=== PATIENT | female | born 1980 | race Caucasian/White ===

== ENCOUNTER 2017-01-09 23:35 | Observation (INO) | payer MEDICAID, OTHER ==
[2017-01-10] MEDS ORDERED: Sodium Chloride 0.9% 1,000 ML IV STA (00:16)
--- NOTE | 2017-01-10 00:16 | ED PDOC ---
Arrival/HPI - General Chief Complaint: Breast Problem Time Seen by Provider: 01/09/17 23:38 Historian: Patient - History of Present Illness Narrative History of Present Illness (Text): 01/10/17 00:13 Ernestina Zamudio is a 36 year old female, with no significant past medical history , who presents to the Emergency department complaining of left sided chest pain radiating to neck since yesterday. Patient reports associated nausea and generalized malaise/fatigue. Patient denies any fever, chills, shortness of breath, nausea, vomiting, diarrhea, urinary symptoms, back pain, headache, dizziness, or any other complaints. Time/Duration: Other (today) Symptom Onset: Gradual Symptom Course: Unchanged Activities at Onset: Rest, Light Context: Home Past Medical History - Provider Review Nursing Documentation Reviewed: Yes - Infectious Disease Hx of Infectious Diseases: None - Reproductive Menopause: No - Psychiatric Hx Psychophysiologic Disorder: No Hx Substance Use: No - Surgical History Hx Section: Yes - Anesthesia Hx Anesthesia: No Family/Social History - Physician Review Nursing Documentation Reviewed: Yes Family/Social History: No Known Family HX Smoking Status: Never Smoked Hx Alcohol Use: No Hx Substance Use: No Allergies/Home Meds Allergies/Adverse Reactions: Allergies lactose Allergy (Verified 09/22/15 08:55) VOMITING Review of Systems - Physician Review All systems were reviewed & negative as marked: Yes - Review of Systems Constitutional: Fatigue, Other (+generalized malaise) Eyes: Normal ENT: Normal Respiratory: Normal. absent: SOB, Cough Cardiovascular: Chest Pain Gastrointestinal: Normal. absent: Abdominal Pain, Diarrhea, Nausea, Vomiting Genitourinary Female: Normal. absent: Dysuria, Frequency, Hematuria, Urine Output Changes Musculoskeletal: Neck Pain. absent: Back Pain Skin: Normal. absent: Rash Neurological: Normal. absent: Headache, Dizziness Endocrine: Normal Hemo/Lymphatic: Normal Psychiatric: Normal Physical Exam Vital Signs Reviewed: Yes Vital Signs Temp Pulse Resp BP Pulse Ox 01/10/17 03:00 63 18 118/71 99 01/10/17 01:36 73 12 118/71 100 01/09/17 23:50 97.6 F 75 20 120/71 100 Temperature: Afebrile Blood Pressure: Normal Pulse: Regular Respiratory Rate: Normal Appearance: Positive for: Well-Appearing, Non-Toxic, Comfortable Pain Distress: None Mental Status: Positive for: Alert and Oriented X 3 - Systems Exam Head: Present: Atraumatic, Normocephalic Pupils: Present: PERRL Extroacular Muscles: Present: EOMI Conjunctiva: Present: Normal Mouth: Present: Moist Mucous Membranes Neck: Present: Normal Range of Motion Respiratory/Chest: Present: Clear to Auscultation, Good Air Exchange. No: Respiratory Distress, Accessory Muscle Use Cardiovascular: Present: Regular Rate and Rhythm, Normal S1, S2. No: Murmurs Abdomen: Present: Normal Bowel Sounds. No: Tenderness, Distention, Peritoneal Signs Back: Present: Normal Inspection Upper Extremity: Present: Normal Inspection. No: Cyanosis, Edema Lower Extremity: Present: Normal Inspection. No: Edema Neurological: Present: GCS=15, CN II-XII Intact, Speech Normal Skin: Present: Warm, Dry, Normal Color. No: Rashes Psychiatric: Present: Alert, Oriented x 3, Normal Insight, Normal Concentration Medical Decision Making ED Course and Treatment: 01/10/17 00:13 Impression: 36 year old female complaining of left chest pain radiating to neck, nausea, and generalized malaise/fatigue. Plan: -- EKG -- Chest X-ray -- Labs, cardiac enzymes, lipase -- Reassess and disposition 01/10/17 05:13 - Lab Interpretations Lab Results: 01/10/17 00:05 01/10/17 00:05 Lab Results 01/10/17 00:05: WBC 5.0, RBC 4.55, Hgb 11.4 L, Hct 33.7 L, MCV 74.1 L, MCH 25.1 , MCHC 33.8, RDW 14.0, Plt Count 246, MPV 9.7 01/10/17 00:05: Sodium 139, Potassium 3.8, Chloride 106, Carbon Dioxide 27, Anion Gap 10, BUN 14, Creatinine 0.9, Est GFR ( Amer) > 60, Est GFR (Non- Af Amer) > 60, Random Glucose 88, Calcium 9.2, Total Bilirubin 0.3, AST 23, ALT 27, Alkaline Phosphatase 58, Lactate Dehydrogenase 286 L, Total Creatine Kinase 127, Troponin I < 0.01, Total Protein 7.7, Albumin 4.2, Globulin 3.5, Albumin/ Globulin Ratio 1.2, Lipase 57 01/10/17 00:05: PT 11.5, INR 1.06, APTT 31.8 H I have reviewed the lab results: Yes - RAD Interpretation [employer]: ED Physician - EKG Interpretation Interpreted by ED Physician: Yes Type: 12 lead EKG - Medication Orders Current Medication Orders: Discontinued Medications Aspirin (Aspirin) 325 mg PO ONCE STA Stop: 01/10/17 05:14 Sodium Chloride (Sodium Chloride 0.9%) 1,000 mls @ 999 mls/hr IV .Q1H1M STA Stop: 01/10/17 01:16 Last Admin: 01/10/17 00:57 Dose: 999 mls/hr Ondansetron HCl (Zofran Inj) 4 mg IVP ONCE ONE Stop: 01/10/17 00:17 Last Admin: 01/10/17 00:57 Dose: 4 mg ED OBSERVATION Date of observation admission: 01/10/17 Time of observation admission: 00:15 - Observation admission statement Patient is being placed in observation because:: Left-sided chest pain - Goals of Observation Goals of observation are:: Determine etiology of and treat symptoms - Progress Note Progress Note: 01/10/17 00:15 Reviewed EKG, NSR at 70 bpm. Septal infarct. Non-specific ST/T wave changes. 12/11/16 02:15 Pt resting comfortably, no acute distress. Pending Chest X-ray. 01/10/17 04:06 Reviewed radiology, Chest X-ray shows no acute processes. 01/10/17 05:[address] Parada, who is aware and agrees with plan. Accepts pt in to his service. Pt will go to remote telemetry observation for chest pain. Requests Dr. Dennis on consult. - Scribe Statement The provider has reviewed the documentation as recorded by the Scribnicky Huynh All medical record entries made by the Scribnicky were at my direction and personally dictated by me. I have reviewed the chart and agree that the record accurately reflects my personal performance of the history, physical exam, medical decision making, and the department course for this patient. I have also personally directed, reviewed, and agree with the discharge instructions and disposition. Disposition/Present on Arrival - Present on Arrival Any Indicators Present on Arrival: No History of DVT/PE: No History of Uncontrolled Diabetes: No Urinary Catheter: No History of Decub. Ulcer: No History Surgical Site Infection Following: None - Disposition Have Diagnosis and Disposition been Completed?: Yes Diagnosis: Chest pain Disposition: HOSPITALIZED Disposition Time: 05:23 Patient Plan: Observation Condition: STABLE
[2017-01-10 00:35] LABS: HEMATOCRIT 33.7 % (36.0-48.0); MEAN CELL VOLUME 74.1 fL (80.0-105.0); MEAN CORPUSCULAR HEMOGLOBIN 25.1 pg (25.0-35.0); MEAN CORPUSCULAR HGB CONC 33.8 g/dl (31.0-37.0); MEAN PLATELET VOLUME 9.7 fl (7.0-11.0)
[2017-01-10 00:40] LABS: INR 1.06 (0.93-1.08); PARTIAL THROMBOPLASTIN TIME 31.8 Seconds (23.7-30.8)
[2017-01-10 00:42] LABS: ALB/GLOB RATIO 1.2 (1.1-1.8); ALKALINE PHOSPHATASE 58 U/L (38-133); ALT/SGPT 27 U/L (7-56); AST/SGOT 23 U/L (15-39); BILIRUBIN,TOTAL 0.3 mg/dL (0.2-1.3); BLOOD UREA NITROGEN 14 mg/dL (7-21); CALCIUM 9.2 mg/dL (8.4-10.5); CARBON DIOXIDE 27 mmol/L (21-33); CHLORIDE 106 mmol/L (98-107); GFR AFRICAN-AMERICAN > 60; GLUCOSE,RANDOM 88 mg/dL (70-110); LIPASE 57 U/L (23-300); POTASSIUM 3.8 mmol/L (3.6-5.0); SODIUM 139 mmol/L (132-148); TOTAL PROTEIN 7.7 g/dL (5.8-8.3)
[2017-01-10 00:54] LABS: TROPONIN I < 0.01 ng/mL
[2017-01-10 05:59] VITALS: O2SAT 100
[2017-01-10 08:07] VITALS: BP 121/83; RESP 20; TEMP 97.8
--- NOTE | 2017-01-10 09:13 | RAD ---
HISTORY: Chest pain COMPARISON: No prior. FINDINGS: LUNGS: The lungs are well inflated and clear. PLEURA: No significant pleural effusion identified, no pneumothorax apparent. CARDIOVASCULAR: Normal. OSSEOUS STRUCTURES: No significant abnormalities. VISUALIZED UPPER ABDOMEN: Normal. OTHER FINDINGS: None. IMPRESSION: No active pulmonary disease.
[2017-01-10 10:31] VITALS: PULSE 80
--- NOTE | 2017-01-10 10:49 | HP ---
HISTORY OF PRESENT ILLNESS: I saw her in her room. I was called last night in the middle of the [facility] as she came in with chest pain to the Emergency Room radiating to her neck and did not go away, so me nauseousness and generalized weakness. She also just recently delivered a baby 6 months ago and s he is . She is very concerned about not seeing her child. PAST MEDICAL HISTORY: She does have a history of . No medical history. SOCIAL HISTORY: No smoking, no drinking, no drugs. FAMILY HISTORY: None. ALLERGIES: SHE HAS A LACTOSE ALLERGY. MEDICATIONS: She was taking a vitamin. REVIEW OF SYSTEMS: She is a little bit tired, generalized malaise. No vision changes, no hearing ch anges. No shortness of breath. No cough. She does have chest pain, almost like a pressure. No jose de jesus rrhea, nausea, vomiting, constipation. No problems urinating. There is some neck pain and chest carla n, a little bit better this morning. Skin is intact. No rashes. No headache, no dizziness, no swea ting. Not depressed or anxious, just wishes she was with her baby. PHYSICAL EXAMINATION: VITAL SIGNS: 97.6 temp, 75 pulse, 20 respiratory rate, 120/71 blood pressure, 100% O2 sat on room ai r. GENERAL: Well-appearing, nontoxic, comfortable, alert and oriented x 3. HEENT: Head is atraumatic, normocephalic. Pupils equal and reactive to light. Extraocular muscles are intact. Throat is moist. NECK: Supple. HEART: Regular rate. Normal S1, S2. LUNGS: Decreased breath sounds but clear to auscultation. ABDOMEN: Soft, nontender, positive bowel sounds. EXTREMITIES: No edema. NEUROLOGIC: GCS is 15. Cranial nerves II-XII grossly intact. Speech is normal. SKIN: Warm and dry, no rashes. NEUROLOGIC: Alert and oriented x 3. Thyroid midline. No palpable lymphadenopathy appreciated at th is time. She is doing much better. Chest pain is almost gone. LABORATORY DATA: She had multiple tests. Chest x-ray is pending. She had a 139 sodium, potassium 3 .8, BUN 14, creatinine 0.9, GFR is greater than 60, sugar is 88, calcium is 9.2, total bili is 0.3. AST is 23, ALT is 27, alk phos 58, lactic dehydrogenase 286, total creatinine kinase is 127. First t roponin 0.01 at midnight, ordered a stat one now. She has a total protein of 7.7, albumin is 4.2, gl obulin is 3.5, lipase 57. INR is 1.06. White count 5, hemoglobin 11.4, hematocrit 32.7, platelets o f 14. She is here for chest pain, status post recent 6 months ago and she is . She was given Zofran, IV fluids and an aspirin. She is right now on no medications, no IVs and she is co mfortable, waiting for cardiology to come in. Will check a stat troponin and will see if we can poss ibly discharge her for outpatient workup if the next troponin is negative, I will discuss that with giselle kirkland. She is here for chest pain. James Parada DO cc: [id number] TT: 01/10/2017 10:48:32 sridevi
--- NOTE | 2017-01-10 11:43 | PN ---
DATE: 01/10/2017 CARDIOLOGY FOLLOWUP HISTORY: The patient is a 36-year-old woman who presents with epigastric discomfort as well as back pain. Her symptoms are all initiated by movement of the upper chest. PAST MEDICAL HISTORY: Free of cardiac risk factors and no previous cardiac history. SOCIAL HISTORY: She denies smoking. The patient underwent an uncomplicated delivery of her fourth baby 6 months ago. She denies shortness of breath. REVIEW OF SYSTEMS: A 14-point review of systems was reviewed. No cardiac symptomatology is noted. PHYSICAL EXAMINATION: VITAL SIGNS: Stable. NECK: Negative JVD. LUNGS: Without rales. HEART: Reveals S1, S2. EXTREMITIES: Without edema. LABORATORY DATA: EKG is unremarkable. Troponins are negative. IMPRESSION: 1. Atypical chest pain. 2. Likely musculoskeletal in origin. 3. No evidence for acute coronary syndrome. PLAN: Given these findings, there is no further workup that is necessary for the patient at this denny e. We will obtain an outpatient echocardiogram to rule out pericardial and evaluate LV function, which t he patient has asked to evaluate her heart issues as an outpatient. William Dennis MD cc: [id number] TT: 01/10/2017 11:39:16 Confirmation # [id number] Dictation # [id number] sara
--- NOTE | 2017-01-10 14:48 | CARD ---
APPROVED REPORT EKG Measurement Heart [id number] <Conclusion> Normal sinus rhythm NSSTW changes
--- NOTE | 2017-01-28 10:12 | DS ---
She came in with epigastric chest pain. She did well with her labs. She was seen by the coding support specialist who send her out for outpatient echo. She was here for atypical chest pain, most likely, strain, no evidence of acute coronary syndrome. She was discharged. James Parada DO cc: [id number] TT: 01/27/2017 19:55:09 jn MTDD
== END 2017-01-10 13:47 | disposition home or self-care (01) ==
LOC: ED 23:35 → EROBSV 01-10 00:15 → ERH 01-10 05:21 → 3RSO 01-10 06:40
PROVIDERS: ADMIT Family Medicine; ATTEND Family Medicine
DX: R07.89 Other chest pain (principal)
CPT/HCPCS: 71010; 80053; 82550; 83615; 83690; 84484; 85027; 85610; 85730; 93005; 96361; 96374; 99285; G0378; J2405; J7040